=== PATIENT | female | born 1955 | race Asian ===

== ENCOUNTER 2020-07-05 09:11 | Day surgery (SDC) | payer OTHER, BC ==
[2020-07-03 17:16] VITALS: BMI 24.7
[2020-07-05] MEDS ORDERED: ROPIVACAINE HCL 0.5% 30ML VIAL ONE (11:36)
[2020-07-05] MEDS ORDERED: MIDAZOLAM HCL 2 MG/2 ML SINGLE DOSE VIAL ONE (11:36)
--- NOTE | 2020-07-05 11:51 | HP ---
History & Physical Update - History History: No Change - Physical Physical: No Change - Assessment Assessment: No Change - Plan Plan: No Change
[2020-07-05] MEDS ORDERED: ACETAMINOPHEN 325 MG TABLET (FP) PO PRN (12:04)
[2020-07-05] MEDS ORDERED: EPINEPHrine 1:1,000 1 MG/1 ML - 30ML VIAL (INJECTION) ONE (12:32)
[2020-07-05] MEDS ORDERED: PROPOFOL 20 ML ONE ×4 (12:39)
[2020-07-05] MEDS ORDERED: DEXAMETHASONE SOD PHOSPHATE 4 MG/1 ML VIAL ONE (13:03)
[2020-07-05] MEDS ORDERED: oxyCODONE HCL 5 MG TABLET PO PRN ×2 (14:22)
[2020-07-05] MEDS ORDERED: ONDANSETRON 4 MG/2 ML VIAL IVPUSH PRN (14:22)
--- NOTE | 2020-07-05 14:45 | OPR ---
Procedure: Right Shoulder- 1. Diagnostic arthroscopy. 2. Arthroscopic extensive debridement of glenohumeral joint including biceps tenotomy (99901). 3. Arthroscopic lysis and resection of adhesions, with manipulation (70185). 4. Arthroscopic subacromial decompression (16230). Preoperative Diagnoses: 1. Partial rotator cuff tear-Supraspinatus. 2. Biceps tendon degeneration and tenosynovitis. 3. Glenohumeral synovitis. 4. Adhesive Capsulitis Postoperative Diagnoses: 1. Partial bursal sided rotator cuff tear-Supraspinatus. 2. Biceps tendon degenration and tenosynovitis. 3. Labral degeneration and fraying; SLAP tear. 4. Chondromalacia of the glenohumeral joint. 5. Glenohumeral synovitis. 6. Subacromial bursitis and adhesions. 7. Adhesive Capsulitis Surgeon: Deepak Aparicio DO Assistants: Jonatan Salas DO Anesthesia: General anesthesia, IV regional with interscalene nerve block, Estimated Blood Loss: Minimal Drains: None Total IV Fluids: Per anesthesia record Specimens: None Implants: None Complications: None Disposition: PACU Condition: Hemodynamically stable Indications: Lawrence presented to us with chronic right shoulder pain that failed conservative measures. Her symptoms, signs, and imaging were consistent with the above noted diagnoses. She ultimately elected to proceed with surgical intervention after discussion of the risks, benefits, alternatives. We discussed risks including but not limited to, bleeding, pain, infection, scarring, fracture, dislocation, damage to neurovascular structures, blood clots, pulmonary embolus, need for additional surgery, incomplete relief of pain, and incomplete return of function. She expressed understanding and wished to proceed. She underwent preoperative medical evaluation clearance and optimization prior to surgery. Procedure Details: She was identified in the preoperative area. The right shoulder was marked as the operative site and consent was completed and confirmed. An interscalene block was performed by a member of the anesthesia team. She was later transferred to the operating room and placed in supine position t operating room. General anesthesia was induced without difficulty. She was repositioned into beach chair with all bony prominences appropriately padded. The neck was in neutral alignment. A surgical time-out was performed identifying the correct patient, procedure, and site. Antibiotics were given within 1 hour prior to surgical incision. The right upper extremity was prepped and draped in standard sterile fashion. Examination under anesthesia: Passive range of motion of the right shoulder showed forward elevation of 120, abduction 70, external rotation at side 20, SABER 60, SABIR 0. This was compared to her contralateral shoulder which shows forward elevation of 170, abduction 100 external rotation at side 70, SABER 100, SABIR 40. Diagnostic arthroscopy: We began the procedure with the standard posterolateral portal, entered the glenohumeral joint, and an anterior portal was made within the rotator cuff interval under direct visualization with the assistance of a spinal needle. A probe was used to assist with diagnostic arthroscopy and we visualized from both posteriorly and anteriorly. Evaluation of the glenohumeral joint showed significant synovitis globally. The superior labrum was probed and found to be intact. The anterior labrum was probed and found to be intact. The posterior labrum was probed and found to be intact. There were no loose bodies in the inferior pouch. There was no HAGL lesion. The biceps tendon showed hyperemia. The rotator cuff interval was scarred. The axillary recess was empty. The subscapularis was probed and found to be intact. The articular surface of the supraspinatus was intact.The articular surface of the infraspinatus and teres minor tendons were intact. The glenoid and humeral head showed areas of grade I and II chondromalacia with no significant chondral defects. Evaluation of the subacromial space showed moderate bursitis and adhesions. There was fraying of the CA ligament. The AC joint was intact. The rotator cuff showed a partial thickness bursal sided tear involving less than 50% of the tendon, which was debrided back to a stable base. Arthroscopic extensive debridement of the glenohumeral joint: We used a combination of the arthroscopic motorized shaver and radiofrequency device to perform an extensive debridement inside the glenohumeral joint anteriorly and posteriorly. The hyperemia, erythema, and synovitis of the joint and joint capsule was aggressively debrided both anteriorly and posteriorly. Synovitic fronds were thermally ablated. Chondral degeneration was debrided to a stable edge. Labral fraying and degeneration was also resected and debrided to a stable edge anteriorly. The biceps tendon was tenotomized as it inserted into the superior labral complex and the remaining portion of the biceps tendon was allowed to retract into the bicipital groove. Arthroscopic capsular release: Visualizing from posteriorly initially, we used the radiofrequency device to ablate and remove the scar tissue starting with the rotator cuff interval. We stayed lateral to the labrum, released the scar to the lateral surface of the coracoid, and then proceeded more laterally across the rotator interval, ablating the scar tissue all the way to the biceps nathaniel region. The subscapularis tendon was identified and carefully protected. The sc ar above it including the ligaments and capsular tissue was ablated just lateral to the labral margin and the scar tissue was resected. We carefully made our way more inferiorly, and with increasing resection we were able to achieve increasing external rotation and visualization inferiorly. We proceeded to the 5 o'clock position under direct visualization with release of the capsular tissue. We visualized the muscular fibers and subscapularis beneath this and protected it. We then reversed visualization with the scope placed anteriorly and the instrumentation posteriorly, and we repeated these steps to release the posterior capsule. Again, using radiofrequency device, the capsule was resected just lateral to the labral margin under direct visualization. This was released and we visualized the posterior rotator cuff muscular fibers. We extended our release posteroinferiorly to approximately the 7 o'clock position. After this thorough capsular resection, we thoroughly irrigated the joint. We then ranged the arm under visualization. The arm remained stable. Attention was turned to manipulation. Care was taken to stabilize the scapula and maintain short lever arms by securing the humerus as proximally as possible. The arm was gently manipulated into forward elevation and an audible and palpable release was appreciated. The arm was then gently manipulated in external rotation with the arm adducted, followed by internal and external rotation of the abducted arm. Passive range of motion showed forward elevation of 170, abduction 100, external rotation at side 70, SABER 100, SABIR 40. There was no instability and there was excellent release of the capsular tissues. We then re-entered the subacromial space. Arthroscopic subacromial decompression: The subacromial space was entered from posteriorly. A separate anterior-lateral portal was made. for additional instrumentation and visualization. We then visualized the rotator cuff pattern as noted above, and performed our subacromial decompression in a systematic fashion from anterior to posterior and from lateral to medial, removing the bursal tissue carefully. This was done with a radiofrequency device and motorized shaver. The undersurface of the acromion was skeletonized and gently debrided to a flat smooth undersurface. The rotator cuff showed a partial thickness bursal sided tear involving less than 50% of the tendon, which was debrided back to a stable base. Wound closure: The arthroscopic portal incisions were closed with 3-0 Nylon. The shoulder was sterilely dressed and placed in a shoulder immobilizer. Post-operative Details: I spoke with the family regarding the operation after surgery. Postoperative rehabilitation: Arthroscopic capsular release protocol. The patie nt will remain in a sling for as little as possible. Early passive range of motion okay with no limits. The patient will be seen by physical therapy. Home exercises should also be performed four to five times per day for 10-15 minutes at at time with a self assisted and nathaniel assisted stretching exercise program Attestation for cutter first: Dr. Jonatan Salas acted as the cutter first. There was no qualified resident or physician library serials assistant available to do so.
[2020-07-05 14:55] VITALS: PULSE 74
[2020-07-05 15:28] VITALS: BP 154/65; TEMP 98
--- NOTE | 2020-07-10 18:59 | PATH ---
Surgical Pathology Report Patient Name: YUE POND Med. Rec. #: [id number] /Age/Gender: 1955 (Age: 64) / F Account: [id number] Location: [facility] Taken: 07/05/2020 Received: 07/05/2020 Reported: 07/10/2020 Physicians: Deepak Aparicio DO Specimen(s) Received SHAVINGS RIGHT SHOULDER Clinical History Right shoulder rotator cuff tendinopathy Final Diagnosis SHOULDER SHAVINGS, RIGHT, ARTHROSCOPY: FRAGMENTS OF BENIGN DENSE FIBROCONNECTIVE TISSUE, ADIPOSE TISSUE, SYNOVIUM, AND SKELETAL MUSCLE. Electronically Signed Crissy Corado M.D. Gross Description Received in formalin, labeled "right shoulder shavings," is a 4.0 x 3.5 x 0.2 cm. aggregate of gordon-yellow soft tissue fragments. A claims customer service representative portion is submitted in one cassette. 07/08/2020 [facility]07/08/2020
== END 2020-07-05 15:32 | disposition home or self-care (01) ==
LOC: FASU 09:11
PROVIDERS: ATTEND Orthopaedic Surgery
PROC: 0RNJ4ZZ Release Right Shoulder Joint, Percutaneous Endoscopic Approach (ICD-10-PCS; 2020-07-05)
PROC: 0RBJ4ZZ Excision of Right Shoulder Joint, Percutaneous Endoscopic Approach (ICD-10-PCS; principal; 2020-07-05 13:13)
DX: M75.101 Unspecified rotator cuff tear or rupture of right shoulder, not specified as traumatic (principal); M75.21 Bicipital tendinitis, right shoulder; M67.813 Other specified disorders of tendon, right shoulder; S43.431A Superior glenoid labrum lesion of right shoulder, initial encounter; X58.XXXA Exposure to other specified factors, initial encounter; Y93.9 Activity, unspecified; Y92.9 Unspecified place or not applicable; M94.211 Chondromalacia, right shoulder; M65.811 Other synovitis and tenosynovitis, right shoulder; M75.51 Bursitis of right shoulder; M75.01 Adhesive capsulitis of right shoulder
CPT/HCPCS: 73030-TC-RT-FY; 82962; 88304-TC

== ENCOUNTER 2021-03-21 09:50 | Day surgery (SDC) | payer OTHER, BC ==
[2021-03-21] MEDS ORDERED: DENOSUMAB 60 MG/ML DISP.SYRIN SQ ONE (10:30)
[2021-03-21 10:41] VITALS: BP 154/72; PULSE 60; TEMP 98.6
== END 2021-03-21 10:48 | disposition home or self-care (01) ==
LOC: FINFUSION 09:50 → FM/S 09:53 → FINFUSION 10:48
PROVIDERS: ATTEND Internal Medicine Endocrinology, Diabetes & Metabolism
PROC: 3E013GC Introduction of Other Therapeutic Substance into Subcutaneous Tissue, Percutaneous Approach (ICD-10-PCS; principal; 2021-03-21)
DX: M81.0 Age-related osteoporosis without current pathological fracture (principal)
CPT/HCPCS: 96372; J0897

== ENCOUNTER 2021-09-13 10:39 | Day surgery (SDC) | payer OTHER, BC ==
[2021-09-13 11:02] VITALS: BP 159/73; PULSE 60; TEMP 98.5
[2021-09-13] MEDS ORDERED: DENOSUMAB 60 MG/ML DISP.SYRIN SQ ONE (11:15)
== END 2021-09-13 11:59 | disposition home or self-care (01) ==
LOC: FINFUSION 10:39 → FM/S 10:43 → FINFUSION 11:59
PROVIDERS: ATTEND Internal Medicine Endocrinology, Diabetes & Metabolism
PROC: 3E013GC Introduction of Other Therapeutic Substance into Subcutaneous Tissue, Percutaneous Approach (ICD-10-PCS; principal; 2021-09-13)
DX: M81.0 Age-related osteoporosis without current pathological fracture (principal)
CPT/HCPCS: 96372; J0897

== ENCOUNTER 2022-03-18 15:32 | Day surgery (SDC) | payer OTHER, BC ==
[2022-03-18] MEDS ORDERED: DENOSUMAB 60 MG/ML DISP.SYRIN SQ ONE (16:30)
[2022-03-18 16:57] VITALS: BP 149/69; PULSE 63; TEMP 98.9
== END 2022-03-18 16:57 | disposition home or self-care (01) ==
LOC: FINFUSION 15:32 → FM/S 15:36 → FINFUSION 16:57
PROVIDERS: ATTEND Internal Medicine Endocrinology, Diabetes & Metabolism
PROC: 3E013GC Introduction of Other Therapeutic Substance into Subcutaneous Tissue, Percutaneous Approach (ICD-10-PCS; principal; 2022-03-18)
DX: M81.0 Age-related osteoporosis without current pathological fracture (principal); E11.9 Type 2 diabetes mellitus without complications; Z79.84 Long term (current) use of oral hypoglycemic drugs
CPT/HCPCS: 96372; J0897

== ENCOUNTER 2022-09-17 14:40 | Day surgery (SDC) | payer OTHER, BC ==
[2022-09-17 15:15] VITALS: BP 155/77; PULSE 57; RESP 18; TEMP 98.3
[2022-09-17] MEDS ORDERED: DENOSUMAB 60 MG/ML DISP.SYRIN SQ ONE (15:15)
== END 2022-09-17 15:15 | disposition home or self-care (01) ==
LOC: FM/S 14:40 → FINFUSION 14:40
PROVIDERS: ATTEND Internal Medicine Endocrinology, Diabetes & Metabolism
PROC: 3E033GC Introduction of Other Therapeutic Substance into Peripheral Vein, Percutaneous Approach (ICD-10-PCS; principal; 2022-09-17)
DX: M81.0 Age-related osteoporosis without current pathological fracture (principal)
CPT/HCPCS: 96372; J0897

== ENCOUNTER 2023-03-18 10:16 | Day surgery (SDC) | payer OTHER, BC ==
[2023-03-18 10:48] VITALS: BP 152/84; PULSE 54; RESP 18; TEMP 98.9
[2023-03-18] MEDS ORDERED: DENOSUMAB 60 MG/ML DISP.SYRIN SQ ONE (11:00)
== END 2023-03-18 10:49 | disposition home or self-care (01) ==
LOC: FINFUSION 10:16 → FM/S 10:18 → FINFUSION 10:49
PROVIDERS: ATTEND Internal Medicine Endocrinology, Diabetes & Metabolism
PROC: 3E033GC Introduction of Other Therapeutic Substance into Peripheral Vein, Percutaneous Approach (ICD-10-PCS; principal; 2023-03-18)
DX: M81.0 Age-related osteoporosis without current pathological fracture (principal)
CPT/HCPCS: 96372; J0897

== ENCOUNTER 2023-09-24 10:34 | Day surgery (SDC) | payer OTHER, BC ==
[2023-09-24] MEDS ORDERED: DENOSUMAB 60 MG/ML DISP.SYRIN SQ ONE (11:00)
[2023-09-24 11:23] VITALS: BP 150/68; PULSE 64; RESP 16; TEMP 98.6
== END 2023-09-24 11:23 | disposition home or self-care (01) ==
LOC: FINFUSION 10:34 → FM/S 10:35 → FINFUSION 11:23
PROVIDERS: ATTEND Internal Medicine Endocrinology, Diabetes & Metabolism
PROC: 3E013GC Introduction of Other Therapeutic Substance into Subcutaneous Tissue, Percutaneous Approach (ICD-10-PCS; principal; 2023-09-24)
DX: M81.0 Age-related osteoporosis without current pathological fracture (principal); E11.9 Type 2 diabetes mellitus without complications
CPT/HCPCS: 96372; J0897

== ENCOUNTER 2024-03-28 10:59 | Day surgery (SDC) | payer OTHER, BC ==
[2024-03-28 11:18] VITALS: BP 160/64; PULSE 58; RESP 17; TEMP 97.9
[2024-03-28] MEDS: DENOSUMAB 60 MG/ML DISP.SYRIN SQ ONE (11:22)
== END 2024-03-28 11:43 | disposition home or self-care (01) ==
LOC: FINFUSION 10:59 → FM/S 11:00 → FINFUSION 11:43
PROVIDERS: ATTEND Internal Medicine Endocrinology, Diabetes & Metabolism
PROC: 3E0130M Introduction of Antineoplastic, Monoclonal Antibody, into Subcutaneous Tissue, Percutaneous Approach (ICD-10-PCS; principal; 2024-03-28)
DX: M81.0 Age-related osteoporosis without current pathological fracture (principal); E11.9 Type 2 diabetes mellitus without complications
CPT/HCPCS: 96372; J0897

== ENCOUNTER 2024-09-28 10:35 | Day surgery (SDC) | payer OTHER, BC ==
[2024-09-28] MEDS: DENOSUMAB 60 MG/ML DISP.SYRIN SQ ONE (10:59)
[2024-09-28 11:51] VITALS: BP 154/78; PULSE 65; RESP 16; TEMP 98.1
== END 2024-09-28 11:10 | disposition home or self-care (01) ==
LOC: FINFUSION 10:35 → FM/S 10:36 → FINFUSION 11:10
PROVIDERS: ATTEND Internal Medicine Endocrinology, Diabetes & Metabolism
PROC: 3E013GC Introduction of Other Therapeutic Substance into Subcutaneous Tissue, Percutaneous Approach (ICD-10-PCS; principal; 2024-09-28)
DX: M81.0 Age-related osteoporosis without current pathological fracture (principal)
CPT/HCPCS: 96372; J0897